=== PATIENT | male | born 1950 | race Caucasian/White ===

== ENCOUNTER 2019-03-28 12:05 | Emergency (ER) | payer MEDICARE, BC ==
[~2019-03-28 12:05] MED LIST: Sodium Chloride Irrig Solution 250 ML BOT ONE
[2019-03-28] MEDS ORDERED: Adacel (T-DAP) 0.5 ML SYRINGE ONE (13:14)
[2019-03-28] MEDS ORDERED: Bacitracin 1 PK ONE (13:38)
== END 2019-03-28 13:50 | disposition home or self-care (01) ==
LOC: MADERS 12:05
DX: S41.111A Laceration without foreign body of right upper arm, initial encounter (principal); E78.5 Hyperlipidemia, unspecified; E11.9 Type 2 diabetes mellitus without complications; Z79.4 Long term (current) use of insulin; Z79.899 Other long term (current) drug therapy; X58.XXXA Exposure to other specified factors, initial encounter
CPT/HCPCS: 12002; 90471; 90715